=== PATIENT | male | born 1985 | race Caucasian/White ===

== ENCOUNTER 2022-07-17 12:26 | Outpatient (CLI) | payer BC ==
--- NOTE | 2022-07-17 10:49 | XRAY Report ---
PROCEDURE: Ankle 3 View LT INDICATIONS: LEFT ANKLE PAIN TECHNIQUE: 3 views of the ankle were acquired. COMPARISON: None. FINDINGS: Bones: No acute fractures or dislocations. Ankle mortise is normally aligned. No suspicious bony l esions. Tiny plantar calcaneal enthesophyte. Soft tissues: Soft tissue edema is seen in the lateral malleolus. No suspicious soft tissue calcifica tion. IMPRESSION: Nonspecific soft tissue edema over the lateral malleolus. No acute osseous abnormality. If there is clinical concern or persistent symptoms, additional imaging such as repeat radiographs or advanced imaging (e.g. CT, MRI) may be helpful for further evaluation. Reviewed by: Unruly Etienne MD on 07/17/2022 10:48 AM PST Approved by: Unruly Etienne MD on 07/17/2022 10:48 AM [facility] Station ID: [id number]
== END 2022-07-17 12:27 | disposition home or self-care (01) ==
LOC: DI.S 12:26
PROVIDERS: ATTEND Registered Nurse
DX: M25.572 Pain in left ankle and joints of left foot (principal); R60.0 Localized edema